=== PATIENT | male | born 1955 | race Caucasian/White ===

== ENCOUNTER 2017-08-24 07:16 | Emergency (ER) | payer OTHER ==
[2017-08-24 07:22] VITALS: BP 118/74
--- NOTE | 2017-08-24 07:27 | CPEKG ---
Heart Rate: 71 RR Interval: 845 P-R Interval: 180 QRSD Interval: 96 QT Interval: 392 QTC Interval: 426 P Casco: 75 QRS Casco: -16 T Wave Casco: 75 EKG Severity - OTHERWISE NORMAL ECG - EKG Impression: SINUS RHYTHM EKG Impression: BORDERLINE LEFT AXIS DEVIATION Electronically Signed By: Jordon Howard 24-Aug-2017 11:07:22
[2017-08-24] MEDS ORDERED: MECLIZINE HCL 25 MG TAB ONE (07:30)
[2017-08-24] MEDS ORDERED: MECLIZINE HCL 25 MG TAB PO ONE (07:31)
--- NOTE | 2017-08-24 07:36 | EDPHY ---
H & P Stated Complaint: dizzy nausea x 2 days Time Seen by Provider: 08/24/17 07:25 - Personal History Current Tetanus/Diphtheria Vaccine: Yes Tetanus Vaccine Date: 2009 - Medical/Surgical History Hx Asthma: No Hx Chronic Respiratory Disease: No Hx Diabetes: No Hx Cardiac Disease: No Hx Renal Disease: No Hx Cirrhosis: No Hx Alcoholism: No Hx HIV/AIDS: No Hx Splenectomy or Spleen Trauma: No Other PMH: back issues - Social History Smoking Status: Never smoked Constitutional: Initial Vital Signs Temperature (C) 36.4 C 08/24/17 07:19 Heart Rate 84 08/24/17 07:19 Respiratory Rate 17 08/24/17 07:19 Blood Pressure 118/74 08/24/17 07:19 O2 Sat (%) 96 08/24/17 07:19 O2 Delivery Mode Room Air Allergies/Adverse Reactions: omeprazole Allergy (Verified 08/24/17 07:18) Rash Home Medications: Medication Instructions Recorded NK [No Known Home Meds] 08/24/17 Medical Decision Making ED Course/Re-evaluation: CHIEF COMPLAINT: Dizziness with nausea HISTORY OF PRESENT ILLNESS: Healthy 62-year-old gentleman who got up abruptly yesterday from laying flat when he woke in the morning and became acutely dizzy and nauseated. He laid back down the symptoms seem to resolve quite a bit. Throughout the day he had episodes of dizziness that were exacerbated by movement very specifically extreme movements like laying down and getting up quickly. He also felt symptoms when he just turned his head side to side. When he they had completely still and closes eyes his symptoms were the best. He was able to sleep without difficulty. This morning his symptoms are still there so he came for further evaluation. He denies any recent upper respiratory infection although he says he has somewhat of a scratchy throat over the last couple weeks. He denies any trauma specifically head trauma. Denies any change in medications. He denies any weakness in any extremities. He denies any speech difficulty. He endorses the fact that he had a similar process 5 years ago that was resolved by any ENT with [facility]. REVIEW OF SYSTEMS: A 10 point review of systems was performed and is negative with the exception of the elements mentioned in the history of present illness. PHYSICAL EXAM: HR, BP, O2 Sat, RR. Temp noted General Appearance: Alert, well hydrated, appropriate, and non-toxic appearing. Head: Atraumatic without scalp tenderness or obvious injury Eyes: Pupils equal, round, reactive to light and accommodation, EOMI, no trauma , no injection. Ears: Clear bilaterally, no perforation, normal landmarks Nose: Atraumatic, no rhinorrhea, clear. Throat: There is no erythema or exudates, no lesions, normal tonsils, mucus membranes moist. Neck: Supple, 2+ carotid upstroke, nontender, no lymphadenopathy. Respiratory: No retractions, no distress, no wheezes, and no accessory muscle use. Lungs are clear to auscultation bilaterally. Cardiovascular: Regular rate and rhythm, no murmurs, rubs, or gallops. Bilateral carotid, radial, dorsalis pedis, and posterior tibial pulses intact. Good capillary refill all extremities. Gastrointestinal: Abdomen is soft, nontender, non-distended, no masses, no rebound, no guarding, no peritoneal signs. Musculoskeletal: Normal active ROM of all extremities, atraumatic. Neurological: This patient has nystagmus worse to the left with position change. Alert, appropriate, and interactive. The patient has normal DTRs and non-focal cranial nerves, motor, sensory, and cerebellar exam. Skin: No rashes, good turgor, no nodules on palpation. Past medical history: Gastroesophageal reflux, intermittent benign paroxysmal positional vertigo Past surgical history: Noncontributory Family history: Noncontributory Social history: , employed, does not abuse tobacco drugs or alcohol DIAGNOSTICS/PROCEDURES/CRITICAL CARE TIME: None necessary as this patient has completely normal peripheral neurologic exam except for the vertigo and a classic story for a peripheral vertigo as opposed to a central vertigo. The 12 lead EKG was interpreted by myself. See hard copy and/or "tracemaster" electronic copy for interpretation. Normal sinus mechanism no evidence of ischemia normal intervals DIFFERENTIAL DIAGNOSIS: The differential diagnosis for the patient's dizziness included but was not limited to peripheral and central causes of vertigo, orthostatic causes including dehydration, cardiogenic and neurogenic causes, and blood loss. MEDICAL DECISION MAKING: This patient has a classic story and classic examination for benign paroxysmal positional vertigo. He has had exactly the same symptoms for 5 years ago and he followed up with ENT and had a successful treatment with [facility]. I have given him 25 mg of meclizine. I will make sure his CBC and chemistry panel are normal. We will send him over to ENT for [facility] maneu[facility] and give him some additional meclizine as needed. - Data Points Laboratory Results: Laboratory Results 08/24/17 07:27 08/24/17 08/24/17 07:27 07:27 WBC 6.08 10^3/uL 10^3/uL (3.80-9.50) RBC 5.28 10^6/uL 10^6/uL (4.40-6.38) Hgb 16.2 g/dL g/dL (13.7-17.5) Hct 47.8 % % (40.0-51.0) MCV 90.5 fL fL (81.5-99.8) MCH 30.7 pg pg (27.9-34.1) MCHC 33.9 g/dL g/dL (32.4-36.7) RDW 13.0 % % (11.5-15.2) Plt Count 204 10^3/uL 10^3/uL (150-400) MPV 10.7 fL fL (8.7-11.7) Neut % (Auto) 54.6 % % (39.3-74.2) Lymph % (Auto) 37.2 % % (15.0-45.0) Mathews % (Auto) 6.4 % % (4.5-13.0) Eos % (Auto) 1.3 % % (0.6-7.6) Baso % (Auto) 0.3 % % (0.3-1.7) Nucleat RBC Rel Count 0.0 % % (0.0-0.2) Absolute Neuts (auto) 3.32 10^3/uL 10^3/uL (1.70-6.50) Absolute Lymphs (auto) 2.26 10^3/uL 10^3/uL (1.00-3.00) Absolute Monos (auto) 0.39 10^3/uL 10^3/uL (0.30-0.80) Absolute Eos (auto) 0.08 10^3/uL 10^3/uL (0.03-0.40) Absolute Basos (auto) 0.02 10^3/uL 10^3/uL (0.02-0.10) Absolute Nucleated RBC 0.00 10^3/uL 10^3/uL (0-0.01) Immature Gran % 0.2 % % (0.0-1.1) Immature Gran # 0.01 10^3/uL 10^3/uL (0.00-0.10) Sodium Pending Potassium Pending Chloride Pending Carbon Dioxide Pending Anion Gap Pending BUN Pending Creatinine Pending Estimated GFR Pending Glucose Pending Calcium Pending Medications Given: Discontinued Medications Meclizine HCl (Meclizine Hcl) 25 mg PO EDNOW ONE Stop: 08/24/17 07:32 Last Admin: 08/24/17 07:32 Dose: 25 mg Departure - Departure Disposition: Home, Routine, Self-Care Clinical Impression: Benign paroxysmal positional vertigo of left ear Condition: Good Instructions: Benign Paroxysmal Positional Vertigo (ED) Additional Instructions: Please see Nichole Brock at the ENT office she is quite skilled at the [facility] Referrals: Selvin Hernandez MD [Primary Care Provider] - As per Instructions Alhaji Arteaga MD [Medical Doctor] - As per Instructions
[2017-08-24 07:37] LABS: PLATELET COUNT 204 10^3/uL (150-400)
== END 2017-08-24 08:04 | disposition home or self-care (01) ==
DX: H81.12 Benign paroxysmal vertigo, left ear (principal)

== ENCOUNTER → 2017-08-29 | Outpatient (CLI) | payer OTHER | LOC: FIMAGING 08:30 | PROVIDERS: ATTEND Internal Medicine | DX: R90.82 White matter disease, unspecified (principal); G93.9 Disorder of brain, unspecified ==

== ENCOUNTER → 2018-09-14 | Outpatient (CLI) | payer OTHER | LOC: FIMAGING 07:34 ==